=== PATIENT | female | born 1945 | race Caucasian/White ===

== ENCOUNTER 2020-05-31 14:10 | Inpatient (IN) | payer OTHER, MEDICARE ==
[~2020-05-31] VITALS: Ht 162.6 cm; Wt 83.9 kg
[2020-05-31 14:56] LABS: Source, Urine Catheter
[2020-05-31 15:02] LABS: Appearance, Urine Clear (Clear); Blood, Urine 4+ (Neg); Glucose Qualitative, Urine Neg (Neg); Ketones, Urine 4+ (Neg); Leukocyte Esterase, Urine 1+ (Neg); Nitrite, Urine Neg (Neg); Protein, Urine 3+ (Neg); Urobilinogen, Urine 3+ (Normal)
[2020-05-31 15:11] LABS: Bilirubin, Urine 1+ (Neg); Color, Urine Amber (P-Yellow)
[2020-05-31 15:13] LABS: Bacteria Few /hpf; Mucus Mod (0-Heavy); Squamous Epithelial Cells Mod /hpf (Few)
[2020-05-31 15:52] LABS: BASOPHILS ABSOLUTE AUTO 0.02 K/mm3 (0.00-0.23); BASOPHILS PERCENT AUTO 0 % (0-2); EOSINOPHILS PERCENT AUTO 0 % (0-6); Hematocrit 37.6 % (33.0-51.0); Hemoglobin 12.4 g/dL (11.5-16.0); IMMATURE GRAN ABSOLUTE AUTO 0.03 K/mm3 (0.00-0.10); IMMATURE GRAN PERCENT AUTO 0 % (0-1); LYMPHOCYTES ABSOLUTE AUTO 0.89 K/mm3 (0.84-5.20); LYMPHOCYTES PERCENT AUTO 9 % (21-46); MONOCYTES ABSOLUTE AUTO 0.98 K/mm3 (0.16-1.47); MONOCYTES PERCENT AUTO 10 % (4-13); Mean Corpuscular HGB 30.7 pg (26.0-34.0); Mean Corpuscular Volume 93 fL (80-100); Mean Platelet Volume 10.2 fL (9.1-12.4); NEUTROPHILS ABSOLUTE AUTO 7.99 K/mm3 (1.96-9.15); NEUTROPHILS PERCENT AUTO 81 % (41-73); Platelet Count 263 K/mm3 (150-400); RDW Coefficient Variation 14.2 % (11.7-14.2); RDW Standard Deviation 49.1 fL (35.1-46.3); Red Blood Cell Count 4.04 M/mm3 (3.80-5.20); White Blood Cell Count 9.91 K/mm3 (4.00-11.30)
[2020-05-31 16:05] LABS: International Normalized Ratio 1.08; Prothrombin Time Results 11.5 Sec (9.7-11.5)
[2020-05-31 16:13] LABS: Alanine Aminotransfer (ALT/SGP 49 U/L (12-78); Albumin, Blood 3.2 g/dL (3.4-5.0); Albumin/Globulin Ratio 0.8 (0.8-1.8); Alk Phos 90 U/L (50-136); Anion Gap 8 mmol/L (6-16); Aspartate Aminotrans (AST/SGOT 101 U/L (12-37); Bilirubin, Total 1.5 mg/dL (0.1-1.0); Blood Urea Nitrogen 20 mg/dL (8-24); Bun/Creatinine Ratio 36.4 (12.0-20.0); CO2, Blood 23 mmol/L (21-32); Calcium, Blood 9.1 mg/dL (8.5-10.1); Chloride, Blood 109 mmol/L (98-108); Creatinine, Blood 0.55 mg/dL (0.40-1.00); Globulin, Blood 4.2 g/dL (2.2-4.0); Glomerular Filtration Rate >60 (60-); Glucose, Blood 105 mg/dL (70-99); Potassium, Blood 4.4 mmol/L (3.5-5.5); Sodium, Blood 140 mmol/L (136-145); Total Protein, Blood 7.4 g/dL (6.4-8.2)
[2020-05-31 16:32] LABS: CPK Creatine Kinase 1524 U/L (26-193)
[2020-05-31 17:13] LABS: Creatine Kinase MB 17.4 ng/mL (0.0-3.6); Creatine Kinase MB Index 1.1 (0.0-4.0)
--- NOTE | 2020-05-31 19:00 | NUR ---
ASSUMED CARE RECEIVED BEDSIDE REPORT FROM NIYARN, PT ARRIVING TO FLOOR VIA GURNEY. SLIDE TRANSFERRED OVER TO HOSPITAL BED WITH ASSIST OF 4. PT IN NO ACUTE DISTRESS, RESPS E/U. VS OBTAINED, ORIENTED TO ROOM/UNIT AND USE OF CALL LIGHT. PT A&O X2, PLEASANT. NO ACUTE NEEDS ASSESSED AT THIS TIME. CALL LIGHT, POSSESSIONS IN REACH, BED IN LOW POSITION WITH ALARMS ON. CONTINUE TO MONITOR.
--- NOTE | 2020-06-01 04:58 | NUR ---
ESTABLISHMENT GUIDE SUMMARY PT ASLEEP, IN NO ACUTE DISTRESS. VS REVIEWED, PT FEBRILE, RELIEVED BY TYLENOL. OTHER VS WNL. NO ACUTE CHANGES IN CONDITION TO REPORT. SLEPT THROUGHOUT THE NIGHT. PT DENIES PAIN. NO ACUTE NEEDS ASSESSED AT THIS TIME. CALL LIGHT, POSSESSIONS IN REACH, BED IN LOW POSITION. CONTINUE TO MONITOR, REPORT OFF TO ONCOMING RN.
--- NOTE | 2020-06-01 17:12 | NUR ---
PT RESTING IN BED, MAKES NO COPLAINTS, BACK AND FORTH BETWEEN A/O X 2-3, CONFUSED BUT VERY PLEASANT AND COOPERATIVEMED. PT IS MED COMPLIANT AND CONSUMES HER MEALS. PT IS A POOR HISTORIAN. OVER THE PHONE, DAUGHTER REPORTS PT BEING WELL BELOW HER BASELINE COGNITION. PT WORKED WELL WITH PT THIS SHIFT BUT REMAINS IN HER BED DUE TO DECONDITIONING. MORE PT/OT TUESDAY TO INCREASE STRENGTH. PT IV IS RUNNING AND WNL. BED IN LOW POSITION AND CALL LIGHT WITHIN REACH. STAFF WILL CONT. TO MONITOR FOR CHANGES.
--- NOTE | 2020-06-01 18:55 | NUR ---
ASSUMED CARE RECEIVED REPORT FROM LADAN HARVEY. PT RESTING COMFORTABLY, IN NO ACUTE DISTRESS, NO C/O PAIN OR DISCOMFORT AT THIS TIME. IV REMOVED, WILL PLACE A NEW LINE. PT DENIES NEEDS AT THIS TIME. CALL LIGHT, POSSESSIONS IN REACH, BED IN LOW POSITION WITH ALARMS ON. CONTINUE TO MONITOR.
--- NOTE | 2020-06-02 03:58 | NUR ---
LNA SUMMARY PT A&O TO SELF, PLEASANTLY CONFUSED, WITH PERIODIC HALLUCINATIONS. CONFABULATES AT TIMES. VS REVIEWED, WNL, AFEBRILE. PT HAS HAD NO ACUTE CHANGES IN CONDITION OVERNIGHT, NO CARDIAC EVENTS REPORTED; DENIES CP/PRESSURE/SOB. SLEPT ON AND OFF T/O NIGHT. DENIES PAIN OR NEEDS. CALL LIGHT, POSSESIONS IN REACH, BED IN LOW POSITION WITH ALARM ON. TOX SCREEN PENDING UNTIL UP WITH THERAPY THIS AM. WILL CONTINUE TO PROVIDE CARE AND REPORT OFF TO ONCOMING RN.
--- NOTE | 2020-06-02 16:56 | NUR ---
PATIENT A/O TO SELF AND FAMILY ONLY. PLEASANTLY CONFUSED TODAY. WORKED WITH PT/OT, ABLE TO SIT ON TE SIDE OF THE BED. LEGS VERY TENDER TO TOUCH. TOLERATING REGULAR DIET. INCONTINENT OF URINE, WEARING ATTENDS. VSS, ON RA. SR ON TELE, DENIES ANY CP OR SOB. 20G IV TO R FA WNL AND SL. ROCEPHIN TO TREAT UTI. NO NEW CONCERNS THIS SHIFT.
--- NOTE | 2020-06-03 04:34 | NUR ---
SHIFT SUMMARY: VSS. AFEB. AAOX2. MAKING STRANGE STATEMENTS. STORIES DON'T MAKE SENSE. PLEASANT, COOPERATIVE, HAPPY. REMAINS IN BED ALL NIGHT. ASSISTS W/ TURNS. HEAVY INCONTINENT VOIDS. BLISTERS ON R BUTTOCKS TRICIA W/ BARRIER CREAM APPLIED. APPEAR TO BE HEALING WELL. BED ALARM ON AND SIDE RAILS UP X 3. NO ATTEMPTS TO SELF T/F. NO ACUTE OVERNIGHT EVENTS. WCTM.
[2020-06-03 04:48] LABS: BASOPHILS ABSOLUTE AUTO 0.02 K/mm3 (0.00-0.23); BASOPHILS PERCENT AUTO 0 % (0-2); EOSINOPHILS ABSOLUTE AUTO 0.16 K/mm3 (0.00-0.68); EOSINOPHILS PERCENT AUTO 3 % (0-6); Hemoglobin 9.9 g/dL (11.5-16.0); IMMATURE GRAN ABSOLUTE AUTO 0.01 K/mm3 (0.00-0.10); IMMATURE GRAN PERCENT AUTO 0 % (0-1); LYMPHOCYTES ABSOLUTE AUTO 1.74 K/mm3 (0.84-5.20); LYMPHOCYTES PERCENT AUTO 33 % (21-46); MONOCYTES ABSOLUTE AUTO 0.64 K/mm3 (0.16-1.47); MONOCYTES PERCENT AUTO 12 % (4-13); Mean Corpuscular HGB 30.3 pg (26.0-34.0); Mean Corpuscular HGB Conc 31.9 g/dL (31.5-36.5); Mean Corpuscular Volume 95 fL (80-100); Mean Platelet Volume 10.2 fL (9.1-12.4); NEUTROPHILS ABSOLUTE AUTO 2.67 K/mm3 (1.96-9.15); NEUTROPHILS PERCENT AUTO 51 % (41-73); Platelet Count 238 K/mm3 (150-400); RDW Coefficient Variation 14.5 % (11.7-14.2); RDW Standard Deviation 50.7 fL (35.1-46.3); Red Blood Cell Count 3.27 M/mm3 (3.80-5.20); White Blood Cell Count 5.24 K/mm3 (4.00-11.30)
[2020-06-03 05:20] LABS: Albumin, Blood 2.4 g/dL (3.4-5.0); Anion Gap 5 mmol/L (6-16); Blood Urea Nitrogen 14 mg/dL (8-24); Bun/Creatinine Ratio 21.6 (12.0-20.0); CO2, Blood 28 mmol/L (21-32); Calcium, Blood 8.4 mg/dL (8.5-10.1); Chloride, Blood 111 mmol/L (98-108); Creatinine, Blood 0.65 mg/dL (0.40-1.00); Glomerular Filtration Rate >60 (60-); Glucose, Blood 87 mg/dL (70-99); Phosphorus, Blood 3.3 mg/dL (2.5-4.9); Potassium, Blood 3.9 mmol/L (3.5-5.5); Sodium, Blood 144 mmol/L (136-145)
--- NOTE | 2020-06-03 13:46 | NUR ---
Met pt. in a chair and her therapist in the room talking with pt. Pt. rerports to be doing much better and we prayed and I gave blessing to the pt.
[2020-06-03] MEDS ORDERED: ACET325 PO (14:46)
[2020-06-03] MEDS ORDERED: AMLO10 PO (14:46)
[2020-06-03] MEDS ORDERED: HYDR10 PO (14:47)
[2020-06-03] MEDS ORDERED: DULCOLAX400 MG/5 M PO (14:48)
[2020-06-03] MEDS ORDERED: ONDA4ODT MM (14:48)
[2020-06-03] MEDS ORDERED: VISBIOME 112.51 EACH PO (14:49)
--- NOTE | 2020-06-03 17:32 | NUR ---
SHIFT SUMMARY PT RAMBLES AND IS VERY CHATTY WHEN STAFF IN ROOM. SPOKE WITH DAUGHTER TIM THIS MORNING WHO STATED SHE WAS GETTING READY TO COME [place]. MANAGER POOL NOTIFIED AND SPOKE WITH HER ON THE PHONE WELL. TIM AND PT REPORTED THAT SON ZUNILDA WAS NOT TO BE GIVEN ANY INFORMATION AND PT REQUESTED OSIEL MAURO TO NOT COME VISIT HER. PT HAS DENIED PAIN OR NAUSEA. WAS ABLE TO ANSWER ORIENTATION OF PLACE, REASON AND YEAR, MONTH THIS NORNING BUT STRUGGLED TO UNDERSTAND QUESTIONS FULLY WHEN FIRST ASKED. UP IN CHAIR THIS MORNING AFTER BREAKFAST. PLANS FOR PT TO GO TO SNF TOMORROW. DID SPEAK WITH OSIEL MAURO ON PHONE THIS AFTERNOON AND EXPLAINED THAT PT WISHES TO NOT HAVE HIM CALL HER OR COME SEE HER.
[2020-06-04 04:45] LABS: BASOPHILS ABSOLUTE AUTO 0.03 K/mm3 (0.00-0.23); BASOPHILS PERCENT AUTO 1 % (0-2); EOSINOPHILS ABSOLUTE AUTO 0.12 K/mm3 (0.00-0.68); EOSINOPHILS PERCENT AUTO 3 % (0-6); Hemoglobin 10.6 g/dL (11.5-16.0); IMMATURE GRAN ABSOLUTE AUTO 0.01 K/mm3 (0.00-0.10); IMMATURE GRAN PERCENT AUTO 0 % (0-1); LYMPHOCYTES ABSOLUTE AUTO 1.87 K/mm3 (0.84-5.20); LYMPHOCYTES PERCENT AUTO 39 % (21-46); MONOCYTES ABSOLUTE AUTO 0.52 K/mm3 (0.16-1.47); MONOCYTES PERCENT AUTO 11 % (4-13); Mean Corpuscular HGB 30.1 pg (26.0-34.0); Mean Corpuscular HGB Conc 32.1 g/dL (31.5-36.5); Mean Corpuscular Volume 94 fL (80-100); Mean Platelet Volume 9.9 fL (9.1-12.4); NEUTROPHILS ABSOLUTE AUTO 2.31 K/mm3 (1.96-9.15); NEUTROPHILS PERCENT AUTO 48 % (41-73); Platelet Count 274 K/mm3 (150-400); RDW Coefficient Variation 14.5 % (11.7-14.2); RDW Standard Deviation 49.7 fL (35.1-46.3); Red Blood Cell Count 3.52 M/mm3 (3.80-5.20); White Blood Cell Count 4.86 K/mm3 (4.00-11.30)
[2020-06-04 05:11] LABS: Albumin, Blood 2.5 g/dL (3.4-5.0); Anion Gap 4 mmol/L (6-16); Blood Urea Nitrogen 13 mg/dL (8-24); Bun/Creatinine Ratio 19.3 (12.0-20.0); CO2, Blood 27 mmol/L (21-32); CPK Creatine Kinase 187 U/L (26-193); Calcium, Blood 8.6 mg/dL (8.5-10.1); Chloride, Blood 111 mmol/L (98-108); Creatine Kinase MB Index 0.5 (0.0-4.0); Creatinine, Blood 0.67 mg/dL (0.40-1.00); Glomerular Filtration Rate >60 (60-); Glucose, Blood 87 mg/dL (70-99); Phosphorus, Blood 3.4 mg/dL (2.5-4.9); Potassium, Blood 4.4 mmol/L (3.5-5.5); Sodium, Blood 142 mmol/L (136-145)
--- NOTE | 2020-06-04 17:03 | NUR ---
SHIFT SUMMARY PT UP IN CHAIR FOR LUNCH. TOLERATED WITH NO PROBLEM. TENTATIVE DISCHARGE TO REHAB TOMORROW. DENIES PAIN OR NAUSEA. ABLE TO MOVE WITH ASSISTANCE IN BED.
--- NOTE | 2020-06-05 05:44 | NUR ---
SHIFT SUMMARY PATIENT ALERT BUT CONFUSED. SHE HAD NO COMPLAINTS OF PAIN OR SHORTNESS OF BREATH. DID NOT SLEEP MUCH OVERNIGHT. NO ACUTE ISSUES NOTED. BED IN LOWEST POSITION WITH WHEELS LOCKED AND ALARM ON. CALL LIGHT WITHIN REACH. REPORT GIVEN TO ONCOMING RN.
[2020-06-05 10:36] LABS: Influenza A, PCR NEGATIVE (NEGATIVE); Influenza B, PCR NEGATIVE (NEGATIVE); Resp Syncytial Virus, PCR NEGATIVE (NEGATIVE); SARS-Cov-2 (COVID-19) PCR, MMC NEGATIVE (NEGATIVE)
--- NOTE | 2020-06-05 13:15 | NUR ---
REPORT CALLED TO BISHOP AT [facility]. PT TRANSFERRED TO / AND DISCHARGE TO [facility] WITH [facility].
--- NOTE | 2020-06-05 15:38 | NUR ---
Met with pt for a quick visit today, and she is alert, oriented with moments of confusion. She denies SOB or any pain. She denies any discomfor, with the exception of weakness, but she thinks will get better with therapy. Will remain available to pt as needed.
== END 2020-06-05 12:56 | DRG 683 ==
LOC: ER 14:10 → MEDS 14:11 → ENPENDDIS 06-03 16:11 → MEDS 06-04 13:06
PROVIDERS: Family Medicine; Student in an Organized Health Care Education/Training Program; ADMIT Internal Medicine
DX: N17.9 Acute kidney failure, unspecified (principal); M62.82 Rhabdomyolysis; R65.10 Systemic inflammatory response syndrome (SIRS) of non-infectious origin without acute organ dysfunction; N39.0 Urinary tract infection, site not specified; Z66 Do not resuscitate; Z20.822 Contact with and (suspected) exposure to COVID-19; L30.4 Erythema intertrigo; I10 Essential (primary) hypertension; L89.151 Pressure ulcer of sacral region, stage 1; L89.311 Pressure ulcer of right buttock, stage 1; F03.90 Unspecified dementia, unspecified severity, without behavioral disturbance, psychotic disturbance, mood disturbance, and anxiety; Z90.49 Acquired absence of other specified parts of digestive tract
CPT/HCPCS: 0241U; 36415; 80053; 80069; 81001; 82550; 82553; 83605; 85025; 85610; 87086; 93005; 93010; 96360; 96361; 96365; 96372; 97110; 97112; 97129; 97130; 97162; 97166; 97530; 97535; 99285-25; A9270; G0378; G0480; J0696; J1650; J7030; J7120; P9612

== ENCOUNTER → 2020-09-03 | Outpatient (CLI) | payer OTHER ==
[~2020-09-03] MED LIST: ACET325 PO; AMLO10 PO; DULCOLAX400 MG/5 M PO; HYDR10 PO; ONDA4ODT MM; VISBIOME 112.51 EACH PO
[2020-09-03 12:07] LABS: BASOPHILS ABSOLUTE AUTO 0.03 K/mm3 (0.00-0.23); BASOPHILS PERCENT AUTO 1 % (0-2); EOSINOPHILS ABSOLUTE AUTO 0.09 K/mm3 (0.00-0.68); EOSINOPHILS PERCENT AUTO 2 % (0-6); Hematocrit 33.3 % (33.0-51.0); Hemoglobin 10.5 g/dL (11.5-16.0); IMMATURE GRAN ABSOLUTE AUTO 0.01 K/mm3 (0.00-0.10); IMMATURE GRAN PERCENT AUTO 0 % (0-1); LYMPHOCYTES ABSOLUTE AUTO 1.53 K/mm3 (0.84-5.20); LYMPHOCYTES PERCENT AUTO 34 % (21-46); MONOCYTES ABSOLUTE AUTO 0.38 K/mm3 (0.16-1.47); MONOCYTES PERCENT AUTO 9 % (4-13); Mean Corpuscular HGB Conc 31.5 g/dL (31.5-36.5); Mean Corpuscular Volume 92 fL (80-100); Mean Platelet Volume 9.6 fL (9.1-12.4); NEUTROPHILS ABSOLUTE AUTO 2.45 K/mm3 (1.96-9.15); NEUTROPHILS PERCENT AUTO 55 % (41-73); Platelet Count 349 K/mm3 (150-400); RDW Coefficient Variation 16.2 % (11.7-14.2); RDW Standard Deviation 55.5 fL (35.1-46.3); Red Blood Cell Count 3.62 M/mm3 (3.80-5.20); White Blood Cell Count 4.49 K/mm3 (4.00-11.30)
[2020-09-03 13:01] LABS: Anion Gap 5 mmol/L (6-16); Blood Urea Nitrogen 22 mg/dL (8-24); Bun/Creatinine Ratio 35.6 (12.0-20.0); CO2, Blood 28 mmol/L (21-32); Calcium, Blood 9.3 mg/dL (8.5-10.1); Chloride, Blood 105 mmol/L (98-108); Creatinine, Blood 0.62 mg/dL (0.40-1.00); Glomerular Filtration Rate >60 (60-); Glucose, Blood 102 mg/dL (70-99); Potassium, Blood 3.4 mmol/L (3.5-5.5); Sodium, Blood 138 mmol/L (136-145)
== END | disposition home or self-care (01) ==
LOC: EDSTATUS 10:19 → LAB RH 11:36
PROVIDERS: Internal Medicine
DX: M62.82 Rhabdomyolysis (principal); M18.9 Osteoarthritis of first carpometacarpal joint, unspecified; D63.1 Anemia in chronic kidney disease
CPT/HCPCS: 80048; 85025

== ENCOUNTER → 2020-09-04 | Outpatient (CLI) | payer OTHER ==
[2020-09-04 12:19] LABS: Hematocrit 34.1 % (33.0-51.0); Hemoglobin 10.5 g/dL (11.5-16.0); Mean Corpuscular HGB 28.8 pg (26.0-34.0); Mean Corpuscular HGB Conc 30.8 g/dL (31.5-36.5); Mean Corpuscular Volume 93 fL (80-100); Mean Platelet Volume 9.8 fL (9.1-12.4); Platelet Count 377 K/mm3 (150-400); RDW Coefficient Variation 16.2 % (11.7-14.2); RDW Standard Deviation 55.6 fL (35.1-46.3); Red Blood Cell Count 3.65 M/mm3 (3.80-5.20); White Blood Cell Count 6.07 K/mm3 (4.00-11.30)
[2020-09-04 15:26] LABS: Anion Gap 8 mmol/L (6-16); Blood Urea Nitrogen 20 mg/dL (8-24); Bun/Creatinine Ratio 32.6 (12.0-20.0); CO2, Blood 28 mmol/L (21-32); Calcium, Blood 9.5 mg/dL (8.5-10.1); Chloride, Blood 106 mmol/L (98-108); Creatinine, Blood 0.61 mg/dL (0.40-1.00); Glomerular Filtration Rate >60 (60-); Glucose, Blood 106 mg/dL (70-99); Potassium, Blood 3.5 mmol/L (3.5-5.5); Sodium, Blood 142 mmol/L (136-145)
== END | disposition home or self-care (01) ==
LOC: LAB RH 10:14 → EDSTATUS 10:20
PROVIDERS: Internal Medicine
DX: M62.82 Rhabdomyolysis (principal); I12.9 Hypertensive chronic kidney disease with stage 1 through stage 4 chronic kidney disease, or unspecified chronic kidney disease; N18.9 Chronic kidney disease, unspecified; D63.1 Anemia in chronic kidney disease
CPT/HCPCS: 80048; 85027

== ENCOUNTER → 2020-09-12 | Outpatient (CLI) | payer OTHER ==
[2020-09-12 12:56] LABS: Anion Gap 7 mmol/L (6-16); Blood Urea Nitrogen 15 mg/dL (8-24); Bun/Creatinine Ratio 26.4 (12.0-20.0); CO2, Blood 26 mmol/L (21-32); Calcium, Blood 9.8 mg/dL (8.5-10.1); Chloride, Blood 107 mmol/L (98-108); Creatinine, Blood 0.57 mg/dL (0.40-1.00); Glomerular Filtration Rate >60 (60-); Glucose, Blood 110 mg/dL (70-99); Potassium, Blood 3.6 mmol/L (3.5-5.5); Sodium, Blood 140 mmol/L (136-145)
== END ==
LOC: EDSTATUS 09:26 → LAB RH 10:53
PROVIDERS: Internal Medicine
DX: M62.81 Muscle weakness (generalized) (principal)
CPT/HCPCS: 80048

== ENCOUNTER → 2020-10-31 | Outpatient (CLI) | payer OTHER ==
[2020-11-01 16:17] LABS: CORONAVIRUS (COVID19) CSH-NRL Negative (Negative)
== END | disposition home or self-care (01) ==
LOC: EDSTATUS 08:48 → LAB RH 10:24
PROVIDERS: Internal Medicine
DX: U07.1 COVID-19 (principal)
CPT/HCPCS: U0003

== ENCOUNTER → 2020-11-13 | Outpatient (CLI) | payer OTHER ==
[2020-11-13 21:59] LABS: Source, Urine Catheter
[2020-11-13 22:05] LABS: Appearance, Urine Clear (Clear); Bilirubin, Urine Neg (Neg); Blood, Urine 3+ (Neg); Color, Urine Amber (P-Yellow); Glucose Qualitative, Urine Neg (Neg); Ketones, Urine Neg (Neg); Leukocyte Esterase, Urine Neg (Neg); Nitrite, Urine Neg (Neg); Protein, Urine 2+ (Neg); Specific Gravity, Urine 1.025 (1.003-1.022); Urobilinogen, Urine 1+ (Normal)
[2020-11-13 22:11] LABS: Amorphous Light (0-Heavy); Bacteria Mod /hpf; Squamous Epithelial Cells Mod /hpf (Few); White Blood Cells, Urine 0-2 /hpf (0-5)
== END | disposition home or self-care (01) ==
LOC: EDSTATUS 12:04 → LAB RH 20:36
PROVIDERS: Internal Medicine
DX: N39.0 Urinary tract infection, site not specified (principal)
CPT/HCPCS: 81001; 87077; 87086; 87186

== ENCOUNTER → 2021-12-01 | Outpatient (CLI) | payer OTHER ==
[2021-12-02 11:51] LABS: Source, Urine Straight Cath
[2021-12-02 11:59] LABS: Bilirubin, Urine Neg (Neg); Blood, Urine 1+ (Neg); Glucose Qualitative, Urine Neg (Neg); Ketones, Urine Neg (Neg); Leukocyte Esterase, Urine 3+ (Neg); Nitrite, Urine Pos (Neg); Protein, Urine 2+ (Neg); Specific Gravity, Urine 1.015 (1.003-1.022); Urobilinogen, Urine NORM (Normal)
[2021-12-02 12:07] LABS: Appearance, Urine Hazy (Clear); Color, Urine Yellow (P-Yellow)
[2021-12-02 12:08] LABS: Amorphous Light (0-Heavy); Bacteria Few /hpf; Mucus Light (0-Heavy); Squamous Epithelial Cells Mod /hpf (Few)
== END ==
LOC: EDSTATUS 09:56 → LAB RH 10:30
PROVIDERS: Internal Medicine
DX: N39.0 Urinary tract infection, site not specified (principal)
CPT/HCPCS: 81001; 87077; 87086; 87186